=== PATIENT | female | born 1985 ===

== ENCOUNTER 2017-01-24 16:56 | Emergency (ER) | payer MEDICAID ==
[2017-01-24 17:13] VITALS: BP 110/74; PULSE 100; RESP 18; TEMP 98; O2SAT 99
--- NOTE | 2017-01-24 18:39 | ED PDOC ---
HPI: Abdomen Time Seen by Provider: 01/24/17 18:37 Chief Complaint (Nursing): Abdominal Pain Chief Complaint (Provider): ABDOMINAL PAIN History Per: Patient (31 Y/O FEMALE HERE WITH COMPLAINT OF ABDOMINAL PAIN INTERMITTENT ASSOCIATED WITH DIARRHEA/CONSTIPATION X 2 DAYS. PATIENT DENIES ANY FEVERS/CHILLS. WAS IN [facility] AT THE TIME AND STARTED IMMODIUM. NO VOMITING NOTED. STATES HAS HAD INTERMITTENT CRAMPY ABDOMINAL PAIN ASSOCIATED WITH CONSTIPATION.) Past Medical History Reviewed: Historical Data, Nursing Documentation, Vital Signs Vital Signs: Last Vital Signs Temp 98.0 F 01/24/17 17:10 Pulse 100 H 01/24/17 17:10 Resp 18 01/24/17 17:10 BP 110/74 01/24/17 17:10 Pulse Ox 99 01/24/17 19:19 - Medical History PMH: Asthma - Family History Family History: States: Unknown Family Hx - Immunization History Hx Tetanus Toxoid Vaccination: No Hx Influenza Vaccination: No Hx Pneumococcal Vaccination: No - Home Medications Home Medications: Ambulatory Orders Medication Instructions Recorded Miconazole Nitrate [Monistat 3] 200 mg VG DAILY #3 sup 06/28/14 Multivitamin and [id number] 1 tab PO DAILY #30 tab 01/06/15 [] Prednisone 20 mg PO BID #10 tablet 04/11/16 Ciprofloxacin HCl [Cipro] 500 mg PO BID #14 tablet 01/24/17 Dicyclomine [Bentyl] 1 tab PO Q8 PRN #15 tab 01/24/17 Metronidazole [Flagyl] 1 tab PO TID #21 tablet 01/24/17 - Allergies Allergies/Adverse Reactions: Allergies Allergy/AdvReac Type Severity Reaction Status Date / Time No Known Allergies Allergy Verified 08/16/16 08:48 Review of Systems ROS Statement: Except As Marked, All Systems Reviewed And Found Negative Gastrointestinal: Positive for: Abdominal Pain Physical Exam - Reviewed Nursing Documentation Reviewed: Yes Vital Signs Reviewed: Yes - Physical Exam Appears: Positive for: Well, Non-toxic, No Acute Distress Head Exam: Positive for: ATRAUMATIC, NORMAL INSPECTION, NORMOCEPHALIC Skin: Positive for: Normal Color, Warm, DRY Eye Exam: Positive for: EOMI, Normal appearance, PERRL ENT: Positive for: Normal ENT Inspection Neck: Positive for: Normal, Painless ROM Cardiovascular/Chest: Positive for: Regular Rate, Rhythm Respiratory: Positive for: CNT, Normal Breath Sounds Gastrointestinal/Abdominal: Positive for: Normal Exam, Bowel Sounds, Soft Back: Positive for: Normal Inspection Extremity: Positive for: Normal ROM, Other (white thick material noted between interweb space 1st and 2nd digit of right foot.) Neurologic/Psych: Positive for: Alert, Oriented - ECG O2 Sat by Pulse Oximetry: 99 - Progress ED Course And Treament: upt neg Patient refused obstructive series. States she does not want any tests at this time. Would like rx for cipro/flagyl and will f/u with pmd for further evaluation. Patient requests rx for tinea pedis. Disposition - Clinical Impression Clinical Impression: Tinea pedis, Abdominal pain - Patient ED Disposition Is Patient to be Admitted: No - Disposition Referrals: Podiatry Clinic [Outside] Disposition: Routine/Home Disposition Time: 19:21 Condition: FAIR Prescriptions: Dicyclomine [Bentyl] 1 tab PO Q8 PRN #15 tab PRN Reason: Pain, Moderate (4-7) Ciprofloxacin HCl [Cipro] 500 mg PO BID #14 tablet Metronidazole [Flagyl] 1 tab PO TID #21 tablet Instructions: Traveler's Diarrhea (ED) Forms: [facility] ED School/Work Excuse
== END 2017-01-24 21:35 | disposition home or self-care (01) ==
LOC: H.ER 16:56
DX: B35.3 Tinea pedis (principal); R10.9 Unspecified abdominal pain; J45.909 Unspecified asthma, uncomplicated

== ENCOUNTER 2017-03-14 18:58 | Emergency (ER) | payer MEDICAID ==
[2017-03-14 19:12] VITALS: BP 114/82; PULSE 89; RESP 20; TEMP 98.1; O2SAT 99
[2017-03-14] MEDS ORDERED: PrednisoLONE 15 mg/5 ml Oral Syrup (240 ml) PO STA (20:56)
[2017-03-14] MEDS ORDERED: Albuterol-Ipratrop 3 mg / 0.5 (3 ml) UD IH STA ×3 (20:56→20:58)
[2017-03-14] MEDS ORDERED: Albuterol-Ipratrop 3 mg / 0.5 (3 ml) UD ONE (20:59)
--- NOTE | 2017-03-14 21:02 | ED PDOC ---
HPI: CCC, URI, Sore Throat Time Seen by Provider: 03/14/17 20:27 Chief Complaint (Nursing): Shortness Of Breath Chief Complaint (Provider): cough History Per: Patient History/Exam Limitations: no limitations Onset/Duration Of Symptoms: Days (2) Current Symptoms Are (Timing): Still Present Associated Symptoms: Cough, Sputum, Nasal Congestion Additional History Per: Patient Additional Complaint(s): 31 y/o female history of asthma presents with productive cough x 2 days. Associated nasal congestion. Patient states she has been taking Claritin for presumed allergies but thinks it is making her asthma worse because she is now with wheezing and shortness of breath. Patient states she has been taking claritan and albuterol inhaler with little relief. Denies fever, nausea/ vomiting, chest pain, palpitations, abdominal pain, leg pain/swelling, recent travel, sick contacts Past Medical History Reviewed: Historical Data, Nursing Documentation, Vital Signs Vital Signs: Last Vital Signs Temp 98.1 F 03/14/17 19:09 Pulse 89 03/14/17 19:09 Resp 20 03/14/17 21:10 BP 114/82 03/14/17 19:09 Pulse Ox 99 03/14/17 21:02 - Medical History PMH: Asthma - Surgical History Surgical History: No Surg Hx - Family History Family History: States: Unknown Family Hx - Immunization History Hx Tetanus Toxoid Vaccination: No Hx Influenza Vaccination: No Hx Pneumococcal Vaccination: No - Home Medications Home Medications: Ambulatory Orders Medication Instructions Recorded Miconazole Nitrate [Monistat 3] 200 mg VG DAILY #3 sup 06/28/14 Multivitamin and [id number] 1 tab PO DAILY #30 tab 01/06/15 [] Prednisone 20 mg PO BID #10 tablet 04/11/16 Butenafine HCl [Lotrimin Ultra] 0.5 gm TP BID #12 cream..g. 01/24/17 Ciprofloxacin HCl [Cipro] 500 mg PO BID #14 tablet 01/24/17 Dicyclomine [Bentyl] 1 tab PO Q8 PRN #15 tab 01/24/17 Metronidazole [Flagyl] 1 tab PO TID #21 tablet 01/24/17 Albuterol 0.083% [Albuterol 1 vial IH Q6 #30 vial 03/14/17 Sulfate 3 Ml] Fluticasone Nasal [Flonase] 1 actuation NS BID #1 bottle 03/14/17 Mask, Face [Nebulizer Aerosol Mask 1 dev INH PRN PRN #1 dev 03/14/17 Adult] Nebulizer [Compact Compressor 1 dev XX Q6 PRN #1 dev 03/14/17 Nebulizer] PrednisoLONE [Prelone] 45 mg PO DAILY #60 ml 03/14/17 - Allergies Allergies/Adverse Reactions: Allergies Allergy/AdvReac Type Severity Reaction Status Date / Time No Known Allergies Allergy Verified 03/14/17 19:08 Review of Systems ROS Statement: Except As Marked, All Systems Reviewed And Found Negative ENT: Positive for: Nose Congestion Respiratory: Positive for: Cough, Sputum, Wheezing Physical Exam - Reviewed Nursing Documentation Reviewed: Yes Vital Signs Reviewed: Yes - Physical Exam Appears: Positive for: Well, Non-toxic, No Acute Distress Head Exam: Positive for: ATRAUMATIC, NORMAL INSPECTION, NORMOCEPHALIC Skin: Positive for: Normal Color Eye Exam: Positive for: Normal appearance ENT: Positive for: Nasal Congestion Cardiovascular/Chest: Positive for: Regular Rate, Rhythm Respiratory: Positive for: Normal Breath Sounds Gastrointestinal/Abdominal: Positive for: Normal Exam Back: Positive for: Normal Inspection Extremity: Positive for: Normal ROM Neurologic/Psych: Positive for: Alert, Oriented - ECG O2 Sat by Pulse Oximetry: 99 - Radiology X-Ray: Viewed By Pa X-Ray Interpretation: No Acute Disease - Progress ED Course And Treament: chest xray, duonebs, prednisone PO On re-eval, patient states she is feeling better. Patient educated on findings, discharged with rx Prednisone, Flonase, Albuterol nebs Advised follow up PMD 2-3 days. Rest. Fluids. Return to ED for worsening/concerning symptoms. Disposition - Clinical Impression Clinical Impression: URI (upper respiratory infection), Asthma attack - Patient ED Disposition Is Patient to be Admitted: No Counseled Patient/Family Regarding: Studies Performed, Diagnosis, Need For Followup, Rx Given - Disposition Disposition: Routine/Home Disposition Time: 23:37 Condition: IMPROVED Prescriptions: Albuterol 0.083% [Albuterol Sulfate 3 Ml] 1 vial IH Q6 #30 vial Fluticasone Nasal [Flonase] 1 actuation NS BID #1 bottle Mask, Face [Nebulizer Aerosol Mask Adult] 1 dev INH PRN PRN #1 dev PRN Reason: Wheezing Nebulizer [Compact Compressor Nebulizer] 1 dev XX Q6 PRN #1 dev PRN Reason: Wheezing PrednisoLONE [Prelone] 45 mg PO DAILY #60 ml Instructions: Upper Respiratory Infection (ED), Asthma (ED) Forms: [facility] ED School/Work Excuse
--- NOTE | 2017-03-15 11:27 | RAD ---
HISTORY: cough, wheezing COMPARISON: No prior. TECHNIQUE: Chest PA and lateral FINDINGS: LUNGS: No focal consolidation The interstitial markings are slightly increased and coarsened with a few scattered peribronchial cuffing changes; rule out sequela of reactive/inflammatory airway disease PLEURA: No significant pleural effusion identified. No pneumothorax apparent. CARDIOVASCULAR: Normal. OSSEOUS STRUCTURES: No significant abnormalities. VISUALIZED UPPER ABDOMEN: Normal. OTHER FINDINGS: None. IMPRESSION: No focal consolidation. The interstitial markings are slightly increased and coarsened with a few scattered peribronchial cuffing changes; rule out sequela of reactive/ inflammatory airway disease.
== END 2017-03-14 23:44 | disposition home or self-care (01) ==
LOC: H.ER 18:58
DX: J45.909 Unspecified asthma, uncomplicated (principal); R06.2 Wheezing; J06.9 Acute upper respiratory infection, unspecified